=== PATIENT | female | born 1955 | race Caucasian/White ===

== ENCOUNTER 2023-11-12 08:56 | Emergency (ER) | payer BC, SELFPAY ==
[2023-11-12 08:58] VITALS: BP 127/72
--- NOTE | 2023-11-12 09:33 | ED.MUSCINJ ---
HPI-Injury
General
Chief Complaint: Musculo-Skeletal Complaint
Source: patient
Time Seen by Provider: 11/12/23 09:02
Travel History
Have you had any contact with someone who has COVID-19?: No
Do you have any symptoms of coronavirus? Fever > 100 degrees, chills, cough, shortness of breath, sore throat, loss of taste or smell, muscle aches, or headache?: No
History of Present Illness-Injury
Initial Injury comments:
68-year-old female presents complaining of ongoing pain to the right knee. Yesterday she was walking her dog and accidentally twisted her knee. Since then she has been unable to bear weight on her leg. She notes increased swelling. She denies
fever. She saw the [facility] 1 month ago and had her knee drained and a cortisone shot. She was doing well and functional up until yesterday. She works as a nurse. No other complaints at this time
Phy Exam
Physical Exam
Physical Exam:
General: Well-appearing female no acute respiratory distress
HEENT: Normocephalic atraumatic
Musculoskeletal exam: Right knee with large effusion full extension flexion to 90 degrees. She is tender diffusely about the anterior and posterior aspect of the knee. Ligaments are stable
Skin is intact without excessive warmth or erythema
Injury Course
Orders/Labs/Results
Orders:
Orders
11/12/23 09:01
Knee, Right 4 or More Views [CR Knee- Right 4 Or More View*] Urgent
Comment:
Reason For Exam: injury
MDM/Problems Addressed
Differential Diagnosis Includes:
Right knee pain. Defer plan sprain versus exacerbation of underlying DJD versus fracture
I personally visualized x-rays of the right knee which show a large effusion but no fracture and some underlying degenerative changes. Patient having difficulty ambulating. She was hoping for an MRI of her knee today however did explain to her
that would not be indicated emergently. Knee immobilizer was applied she will be advised follow-up with her orthopedic doctor at [facility] for further evaluation
*Critical Care Note
Total Time (30-74mins, 75-104mins- exclusive of procedures): Not Applicable
ED Attending Note
-
Portions of this chart may have been created with voice recognition software.� Occasional wrong word or��sound alike� substitutions may have occurred due to the inherent limitations of voice recognition software.
Discharge Plan
Departure
Patient Disposition: Home (Routine Discharge)
Date of Disposition: 11/12/23
Time of Disposition: 09:40
Patient with high blood pressure during this ER visit?: No
Discharge Problem:
Acute knee pain
Instructions: Muscle and Bone Pain (DC)
Referrals:
Ying Churchill MD [Family Provider] -
Activity Restrictions/Additional Instructions:
Continue with ibuprofen and Tylenol. Use brace for support. Follow-up with your orthopedic doctor for further evaluation
Interventions
Interventions:
*Risk Screen - Suicide Last Done: 11/12/23 08:58
*General Assessment Last Done: 11/12/23 08:58
*Neglect/Abuse Screening Last Done: 11/12/23 08:58
== END 2023-11-12 09:54 | disposition home or self-care (01) ==
LOC: EMR 08:56
PROVIDERS: EMERGENCY PHYSICIAN Emergency Medicine; FAMILY PHYSICIAN Internal Medicine
DX: M25.561 Pain in right knee (principal); M25.461 Effusion, right knee; X50.1XXA Overexertion from prolonged static or awkward postures, initial encounter; Y93.K1 Activity, walking an animal
CPT/HCPCS: 99283; 29505; 73564

== ENCOUNTER → 2023-11-26 13:33 | Outpatient (REF) | payer BC, SELFPAY | LOC: HWRAD 13:33 | PROVIDERS: ATTENDING PHYSICIAN Orthopaedic Surgery | DX: M85.80 Other specified disorders of bone density and structure, unspecified site (principal) | CPT/HCPCS: 77080 ==